=== PATIENT | female | born 1975 | race Caucasian/White ===

== ENCOUNTER → 2016-10-08 | Outpatient (REF) | payer OTHER ==
[~2016-10-08] MED LIST: IBUP200C PO; IRON325T PO; POTA75TA2 PO; RECLTAB PO
[2016-10-08 16:29] LABS: MEAN CORPUSCULAR HEMOGLOBIN 31.6 pg (27.0-33.0); MEAN CORPUSCULAR HGB CONC 32.5 g/dl (32.0-36.5); MEAN CORPUSCULAR VOLUME 97.2 fl (80.0-96.0); RED CELL DISTRIBUTION WIDTH 12.4 % (11.5-14.5); WHITE BLOOD COUNT 7.4 K/mm3 (4.0-10.0)
[2016-10-08 16:56] LABS: ALBUMIN/GLOBULIN RATIO 1.33 (1.00-1.93); ALKALINE PHOSPHATASE 68 U/L (45-117); ALT/SGPT 18 U/L (12-78); ANION GAP 7 MEQ/L (8-16); AST/SGOT 10 U/L (15-37); BILIRUBIN,TOTAL 0.5 MG/DL (0.2-1.0); BLOOD UREA NITROGEN 11 MG/DL (7-18); CALCIUM LEVEL 8.7 MG/DL (8.5-10.1); CARBON DIOXIDE LEVEL 28 MEQ/L (21-32); CHLORIDE LEVEL 106 MEQ/L (98-107); CHOLESTEROL LEVEL 167 MG/DL (<200); CREATININE FOR GFR 0.74 MG/DL (0.55-1.02); GLOMERULAR FILTRATION RATE > 60.0 (>58); GLUCOSE, FASTING 83 MG/DL (70-105); POTASSIUM SERUM 4.6 MEQ/L (3.5-5.1); SODIUM LEVEL 141 MEQ/L (136-145); TRIGLYCERIDES LEVEL 33 MG/DL (<150)
== END | disposition home or self-care (01) ==
LOC: M SFHCLERA 10:07
PROVIDERS: ATTEND Family Medicine
DX: Z90.710 Acquired absence of both cervix and uterus (principal); F17.200 Nicotine dependence, unspecified, uncomplicated; Z86.79 Personal history of other diseases of the circulatory system; Z13.1 Encounter for screening for diabetes mellitus; Z13.220 Encounter for screening for lipoid disorders

== ENCOUNTER → 2016-10-09 | Outpatient (CLI) | payer OTHER ==
--- NOTE | 2016-10-09 12:31 | REP ---
Digital screening bilateral baseline mammography with CAD: The patient denies any breast complaints. Findings: There is a well circumscribed oval-shaped asymmetric 2.4 cm mass density projecting in the right lateral breast on the craniocaudad view. This is seen to less advantage on the MLO view but appears to be inferiorly positioned. This merits further evaluation. Moderate heterogeneous fibroglandular tissue is seen bilaterally. The pattern may inhibit the sensitivity of mammography. No microcalcification, architectural distortion, or other mass is seen. No worrisome skin change is seen. Impression: BIRADS category 0 incomplete breast imaging. Mass density projecting in the inferior and lateral quadrant of the right breast. Diagnostic right breast mammography and focused right breast sonography recommended. This mammogram was interpreted with the aid of an FDA-approved computer-aided detection system. The patient states that she/he has not had a clinical breast exam in over a year. The patient letter being requested is M0 dense. Signed by Mich Wilkins MD 10/09/2016 01:56 P
== END | disposition home or self-care (01) ==
LOC: M RAD 09:47
PROVIDERS: ATTEND Family Medicine
DX: Z12.31 Encounter for screening mammogram for malignant neoplasm of breast (principal); R92.8 Other abnormal and inconclusive findings on diagnostic imaging of breast; N63 Unspecified lump in breast

== ENCOUNTER → 2016-10-28 | Outpatient (CLI) | payer OTHER ==
--- NOTE | 2016-10-28 15:03 | REP ---
RIGHT BREAST ULTRASOUND: 10/28/2016. Clinical history: Lower outer quadrant right breast mammogram nodule. Sonographic evaluation of the right breast from 6-o'clock to 9-o'clock position lower outer quadrant performed. There is a hypoechoic solid mass measuring 1.7 x 1.6 x 0.5 cm. It has internal echoes and color flow. There is some mild through transmission present. This is a solid lesion, not a cyst. There are no other findings. Impression: 1. A 1.7 x 1.6 x 0.5 cm mass lower outer quadrant right breast. Although ultrasound is not a tissue specific diagnostic modality, I would favor fibroadenoma. Please see mammogram report for final assessment and recommendation. Signed by Jin Quesada MD 10/28/2016 05:46 P
--- NOTE | 2016-10-29 09:46 | REP ---
DIAGNOSTIC DIGITAL RIGHT MAMMOGRAM: 10/28/2016 COMPARISON: Screening mammogram, 10/09/2016, right breast ultrasound today. CLINICAL HISTORY: Nodular lesion lower outer quadrant right breast for diagnostic mammogram and ultrasound. On the spot magnified CC, MLO, and true MLO images, there is persistence of an oval nodular density lower outer quadrant right breast at about the 7:30 position. It measures about 2.1 x 2 x 1.1 cm, has lobulated to smooth margins. It is more dense than surrounding parenchyma. There are no associated calcifications. No other findings are noted. Right breast ultrasound in this region shows a solid mass with internal echoes and color flow within it, consistent with a solid lesion. It measures 1.7 x 1.6 x 0.5 cm on the ultrasound, smaller than the diameters on the mammogram when compressed in that study. There was some through transmission suggested but mild. IMPRESSION: BIRADS ACR category 4 suspicious. Biopsy usually required. Solid lesion with blood flow within it in the lower outer quadrant right breast, as described. Ultrasound and mammogram correlate. Although it is potentially a benign fibroadenoma, ultrasound is not a specific diagnostic modality for tissue-type. Ultrasound core biopsy would be recommended. This mammogram was interpreted with the aid of an FDA-approved computer-aided detection system. The patient states that she/he has not had a clinical breast exam in over a year. The patient letter being requested is M4, dense. B-RADS/ACR category 4 mammogram. Suspicious abnormality - biopsy should be considered. Usually requires biopsy. Signed by Jin Quesada MD 10/28/2016 05:47 P
== END ==
LOC: M RAD 13:26
PROVIDERS: ATTEND Family Medicine
DX: Z12.31 Encounter for screening mammogram for malignant neoplasm of breast (principal)

== ENCOUNTER → 2016-11-24 | Outpatient (REF) | payer OTHER | LOC: M LAB REF 08:58 | PROVIDERS: ATTEND Surgery | DX: N63 Unspecified lump in breast (principal) ==

== ENCOUNTER → 2017-02-17 | Outpatient (CLI) | payer OTHER ==
--- NOTE | 2017-02-17 10:31 | REP ---
UNILATERAL MAMMOGRAM, RIGHT BREAST: Unilateral right breast performed in the MLO and CC projections. Family history of breast cancer in maternal grandmother. The patient had a nodule identified on the mammogram of 221, which was subsequently biopsied and the results were negative. A metallic clip is seen within the nodule. The nodule is unchanged in size and appearance. No new mass or clustered microcalcifications are seen. IMPRESSION: ACR 2 benign. Stable benign nodule outer right breast. Recommend followup bilateral mammogram October 2017. BI-RADS/ACR category 2 mammogram. Benign finding(s). Routine annual screening mammography (for women over age 40).This mammogram was interpreted with the aid of an FDA-approved computer-aided detection system. A. Negative x-ray reports should not delay biopsy if a dominant or clinically suspicious mass is present. B. Four to eight percent of cancers are not identified by x-ray. C. Adenosis and dense breasts may obscure an underlying neoplasm. The patient states she/he had a clinical breast exam in November 2016. The patient letter being requested is M1. Signed by Maurilio Abel MD 02/17/2017 01:48 P
== END ==
LOC: M RAD 09:41
PROVIDERS: ATTEND Surgery
DX: D24.1 Benign neoplasm of right breast (principal); Z80.3 Family history of malignant neoplasm of breast

== ENCOUNTER → 2018-01-19 | Outpatient (CLI) | payer OTHER | LOC: M RAD 09:55 | DX: R92.8 Other abnormal and inconclusive findings on diagnostic imaging of breast (principal); Z80.3 Family history of malignant neoplasm of breast | CPT/HCPCS: 77067 ==

== ENCOUNTER → 2019-01-19 | Outpatient (CLI) | payer OTHER ==
--- NOTE | 2019-01-19 22:15 | ECHO ---
DATE OF PROCEDURE: 01/19/2019 REFERRING PHYSICIAN: Maurilio Tesfaye MD PATIENT LOCATION: Outpatient. REASON FOR ECHOCARDIOGRAM: Heart murmur. 2D MEASUREMENTS: IVS: 0.61 cm LV: 4.4 cm LVPW: 0.70 cm LA: 3.0 cm Aorta: 2.7 cm IVC: 1.9 cm DOPPLER MEASUREMENTS: Peak velocity across the aortic valve: 1.3 m/s Peak velocity across the LVOT: 1.0 m/s Mitral E: 0.90, Mitral A: 0.72, with a ratio of 1.2 Maximum tricuspid valve velocity: 2.1 m/s 2D COMMENTS: 1. Normal left ventricular size, wall thickness and normal global left ventricular systolic function. The estimated left ventricular systolic ejection fraction is 60 to 65%. 2. Normal left atrium. Normal right atrium and right ventricle. 3. The atrial septum appeared to be normal without evidence of defect or shunt. 4. Normal aortic root. 5. No pericardial effusion seen. 6. The aortic valve, mitral valve, tricuspid valve and pulmonic valve appeared to be normal. The proximal pulmonary artery branches were not well visualized. 7. The inferior vena cava was normal in size, central venous pressure is most likely normal. DOPPLER: It detects trace mitral regurgitation and trace to mild tricuspid regurgitation. The calculated pulmonary artery systolic pressure was normal, less than 30 mmHg. Assessment of the left ventricular diastolic function also appeared to be normal. IMPRESSION: 1. Normal global left ventricular systolic and diastolic function. 2. Trace mitral regurgitation. 3. Trace to mild tricuspid regurgitation with a normal calculated pulmonary artery systolic pressure. [facility]
== END ==
LOC: M CARPUL 08:05
PROVIDERS: ATTEND Family Medicine
DX: I08.0 Rheumatic disorders of both mitral and aortic valves (principal)

== ENCOUNTER → 2019-01-24 | Outpatient (CLI) | payer OTHER ==
--- NOTE | 2019-01-24 11:27 | REPMRS ---
Patient History The patient states she has not had a clinical breast exam in over a year. Family history of breast cancer in maternal grandmother. 3D TOMOSYNTHESIS WAS PERFORMED. Digital Mammo Screening Bilat: January 24, 2019 - Exam #: [id number] Bilateral CC and MLO view(s) were taken. Technologist: Eve Solis, Technologist Prior study comparison: January 19, 2018, bilateral digital mammo screening bilat performed at [facility]. February 17, 2017, right breast digital mammo diagnostic unilateral performed at [facility]. FINDINGS: The breast tissue is heterogeneously dense. This may lower the sensitivity of mammography. There is a fairly symmetric fibroglandular pattern in both breasts. There has been no interval development of masses, areas of architectural distortion or clusters of microcalcifications typical of malignancy. Assessment: BI-RADS/ACR category 2 mammogram. Benign Findings. Recommendation Routine screening mammogram of both breasts in 1 year (for women over age 40). This mammogram was interpreted with the aid of an FDA-approved computer-aided dectection system. Electronically Signed By: Maurilio Abel MD 01/24/19 [id number]
== END ==
LOC: M RAD 09:58
PROVIDERS: ATTEND Family Medicine
DX: Z12.31 Encounter for screening mammogram for malignant neoplasm of breast (principal); Z80.3 Family history of malignant neoplasm of breast

== ENCOUNTER → 2020-11-14 | Outpatient (CLI) | payer OTHER ==
--- NOTE | 2020-11-14 11:06 | REPMRS ---
Patient History The patient states she has not had a clinical breast exam in over a year. Family history of breast cancer in maternal grandmother. Digital Woman Screen Mammo: November 14, 2020 - Exam #: [id number] Bilateral CC and MLO view(s) were taken. Technologist: Eve Solis, Technologist Prior study comparison: January 24, 2019, bilateral digital mammo screening bilat, performed at [facility]. January 19, 2018, bilateral digital mammo screening bilat, performed at [facility]. February 17, 2017, right breast digital mammo diagnostic unilateral, performed at [facility]. October 09, 2016, bilateral digital mammo screening bilat, performed at [facility]. FINDINGS: The breast tissue is heterogeneously dense. This may lower the sensitivity of mammography. The Volpara volumetric breast density category is: C. There is a needle biopsy marker clip again noted within a stable well-circumscribed, 2.0 cm, nodule in the right breast laterally unchanged from prior studies. There is a moderate amount of heterogeneously dense fibroglandular tissue which is fairly symmetric. There is no interval development of dominant mass, architectural distortion, or grouped microcalcification typical of malignancy. There has been no change in the appearance of the mammogram from the prior studies. 3-D tomosynthesis shows no additional findings. Assessment: BI-RADS/ACR category 2 mammogram. Benign Findings. Recommendation Routine screening mammogram of both breasts in 1 year (for women over age 40). This patient's [facility] Lifetime Breast Cancer RIsk is estimated at 12.3 %. This mammogram was interpreted with the aid of an FDA-approved computer-aided dectection system. Electronically Signed By: Merlin Wilkins MD 11/14/20 [id number]
== END ==
LOC: M WHC 09:52
PROVIDERS: ATTEND Family Medicine
DX: Z12.31 Encounter for screening mammogram for malignant neoplasm of breast (principal)

== ENCOUNTER → 2021-12-11 | Outpatient (CLI) | payer OTHER | LOC: M WHC 10:35 | PROVIDERS: ATTEND Family Medicine | DX: Z12.31 Encounter for screening mammogram for malignant neoplasm of breast (principal); Z80.3 Family history of malignant neoplasm of breast ==

== ENCOUNTER → 2021-12-18 | Outpatient (CLI) | payer OTHER ==
[2021-12-18 12:42] LABS: BASO # 0.1 10^3/uL (0.0-0.2); BASO % 0.6 % (0.0-1.0); EOS % 0.3 % (0.0-3.0); HEMOGLOBIN 14.6 g/dl (12.0-15.5); LYMPH # 2.3 10^3/uL (1.5-5.0); LYMPH % 25.5 % (24.0-44.0); MEAN CORPUSCULAR VOLUME 94.3 fl (80.0-96.0); MONO # 0.5 10^3/uL (0.0-0.8); MONO % 5.8 % (2.0-8.0); NEUTROPHILS # 6.1 10^3/uL (1.5-8.5); NEUTROPHILS % 67.5 % (36.0-66.0); PLATELET COUNT, AUTOMATED 230 10^3/uL (150-450); RED BLOOD COUNT 4.56 10^6/uL (4.00-5.40); WHITE BLOOD COUNT 9.1 10^3/uL (4.0-10.0)
[2021-12-18 13:23] LABS: BLOOD UREA NITROGEN 8 MG/DL (7-18); CALCIUM LEVEL 9.7 MG/DL (8.5-10.1); CARBON DIOXIDE LEVEL 29 MEQ/L (21-32); CHLORIDE LEVEL 106 MEQ/L (98-107); CHOLESTEROL LEVEL 206 MG/DL (<200); CHOLESTEROL RISK RATIO 3.433 (<5); CREATININE FOR GFR 0.69 MG/DL (0.55-1.30); FERRITIN 42 NG/ML (8-252); GLOMERULAR FILTRATION RATE > 60.0 (>58); GLUCOSE, FASTING 87 MG/DL (70-100); HDL CHOLESTEROL 60 MG/DL (>40); IRON (FE) 48 UG/DL (50-170); LDL CHOLESTEROL 135 MG/DL (<100); NON-HDL-C 146 MG/DL; SODIUM LEVEL 140 MEQ/L (136-145); TOTAL IRON BINDING CAPACITY 319 UG/DL (250-450); TRIGLYCERIDES LEVEL 53 MG/DL (<150)
[2021-12-18 14:54] LABS: HEMOGLOBIN A1c 4.8 %
== END ==
LOC: M WUC 10:12
PROVIDERS: ATTEND Family Medicine
DX: E66.9 Obesity, unspecified (principal); Z86.2 Personal history of diseases of the blood and blood-forming organs and certain disorders involving the immune mechanism

== ENCOUNTER → 2023-01-12 | Outpatient (CLI) | payer OTHER | LOC: M WHC 09:42 | PROVIDERS: ATTEND Family Medicine | DX: Z12.31 Encounter for screening mammogram for malignant neoplasm of breast (principal) ==